=== PATIENT | male | born 1930 | race Caucasian/White ===

== ENCOUNTER 2019-03-05 06:54 | Observation (INO) ==
--- NOTE | 2019-02-22 17:09 | PAT Medication Instructions ---
Medication Instructions Date of Service February 22, 2019 Home Medications atenolol 12.5 mg PO BID vit C,I-Gs-bpphy-lutein-zeaxan [PreserVision AREDS-2] 1 tab PO BID STOP taking 2 weeks before surgery If surgery is within 2 weeks, stop taking as soon as possible. vit C,P-Pv-sosjv-lutein-zeaxan [PreserVision AREDS-2] 1 tab PO BID Take morning of surgery With a small sip of water, OTHERWISE NOTHING TO EAT OR DRINK AFTER MIDNIGHT: atenolol 12.5 mg PO BID Take evening before surgery atenolol 12.5 mg PO BID Other Notes If you have any questions please call us at [phone] or [phone] or [phone] or [phone]
--- NOTE | 2019-02-23 10:27 | Anesthesiology Consultation ---
Date of Service February 23, 2019 Assessment & Plan (1) Encounter for pre-operative examination: Chart Review Chart Review: Acceptable Risk for Surgery and Patient seen in Pre Admission Testing Teaching & Discussion Instructed NPO after midnight before surgery, except medications with 15 cc of water. Medication instructions provided according to the PAT guidelines. History Surgery Operation Date: 03/05/19 07:00 Proposed Procedures p Right Open Inguinal Hernia Repair - Micah Diop MD, FACS Height/Weight Height: 5 ft 8 in Weight: 69 kg Allergies Allergy/AdvReac Type Severity Reaction Status Date / Time No Known Allergies Allergy Unknown Verified 02/21/19 13:30 Medications Home Medications Medication Instructions Recorded Confirmed Last Taken atenolol 12.5 mg PO BID 02/21/19 02/21/19 Unknown vit C,Q-Gr-citzx-lutein-zeaxan 1 tab PO BID 02/21/19 02/21/19 Unknown [PreserVision AREDS-2] Past Medical History Medical History Hypertension Self-catheterizes urinary bladder Exercise / Class Metabolic Activity II 4-5 Yardwork/Stairs/Walk up hill (denies CP or SOB with yardwork and stairs, is active around his home) Past Surgical History Surgical History History of appendectomy History of colonoscopy History of cystoscopy HISTORY OF CYSTO WITH IMPLANT TO HELP WITH URINATION. PT STATES THAT THE IMPLANT DID NOT WORK AND THAT HE DOES SELF CATH. History of tonsillectomy S/P TURP Past Anesthesia History No Hx of Anesthesia Complications and No Family Hx of Anesthesia Complications History of PONV No Hx of PONV and No Hx of Motion Sickness Social History Smoking Status: Never smoker Smoking cigarettes per day: 0 Do You Dip or Chew Tobacco: No Hx Alcohol Use: No Alcohol Intake Frequency Comment: 0 Hx Substance Use: No substance use type: does not use Review of Systems Pt denies any recent chest pain, shortness of breath, palpitations, fever or URI. +cough, mild, productive with clear phlegm. Physical Exam Vital Signs BP: 152/80 (pt was seen by PCP last week, reports he is to start additional BP med after surgery) P: 53bpm SPO2: 97% RA T: 98.1 F R: 12 ENMT Mouth: no dental restorations, dentition not poor and no chipped teeth Thyromental Distance: > or= 3.5 Finger Breadths (3.5) Mallampati Class: I Tonsils surgically absent. Neck normal visual inspection and + limited neck extension (mildly, without pain) Respiratory normal respiratory effort Auscultation: lungs clear to auscultation bilaterally and + bronchovesicular shruti ath sounds (B/L) Cardiovascular Rate/Rhythm: regular rate and regular rhythm Heart Sounds: no murmur Vessels: no carotid bruit Extremities: no edema Testing Laboratory Results 02/23/19 10:42 02/23/19 10:42 Electrocardiogram Date: 02/23/19 Findings: + SB @ (49 with 1st degree AVB) Left axis deviation. Low voltage QRS. 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
[2019-02-23 11:57] LABS: Basophils # (auto) 0.02 K/uL (0-0.2); Basophils % (auto) 0.3 %; Eosinophils # (auto) 0.07 K/uL (0-0.5); Eosinophils % (auto) 1.1 %; Hematocrit (blood only) 40.5 % (42-52); Immature Granulocytes # (auto) 0.02 K/uL (0.00-0.02); Immature Granulocytes % (auto) 0.3 %; Lymphocytes # (auto) 1.05 K/uL (1.2-3.4); Mean Corpuscular Hgb Conc 34.6 g/dL (32-36); Mean Corpuscular Volume 92.9 fL (80-100); Monocytes # (auto) 0.54 K/uL (0.11-0.59); Monocytes % (auto) 8.2 %; Neutrophils # (auto) 4.85 K/uL (1.4-6.5); Neutrophils % (auto) 74.1 %; Platelet Count 206 K/uL (130-400); RDW Standard Deviation 47.7 fL (36.4-46.3); Red Blood Count 4.36 M/uL (4.7-6.1); White Blood Count 6.55 K/uL (4.8-10.8)
[2019-02-23 12:09] LABS: BUN Creatinine Ratio 18.7 (10-20); Calcium 8.9 mg/dl (8.5-10.1); Creatinine Clr Calc Pharmacy 40.8 ml/min; Est GFR (African American) 61.6; Est GFR (Non-African American) 53.1; Potassium 4.8 mmol/L (3.5-5.1)
[~2019-03-05 06:54] MED LIST: CEFAZOLIN 2000MG 2,000 MG/15 ML SYR IV SCH; LR 15ML/HR IV SCH
[2019-03-05] MEDS ORDERED: fentaNYL citrate 100 MCG/2 ML VIAL ONE (07:25)
[2019-03-05] MEDS ORDERED: PROPOFOL IV EMULSION 10 MG/ML 20 ML VIAL IV ONE (07:25)
[2019-03-05] MEDS ORDERED: LIDOCAINE HCL 2% 2 ML VIAL/AMP(20MG/ML) INFIL ONE (07:25)
[2019-03-05] MEDS ORDERED: MIDAZOLAM HCL 1 MG/ML 2ML VIAL ONE (07:25)
[2019-03-05] MEDS ORDERED: BUPIVACAINE 0.5 % 5 MG/1 ML MPF 30ML VIAL ONE (07:52)
[2019-03-05] MEDS ORDERED: HYDROmorphone INJ 1 MG/ML SYRINGE IV PRN (07:53)
[2019-03-05] MEDS ORDERED: ONDANSETRON INJ 2 MG/ML 2 ML VIAL IV PRN ×2 (07:53→11:10)
[2019-03-05] MEDS ORDERED: ATROPINE SULFATE 0.1 MG/ML 10ML SYR IV PRN (07:53)
[2019-03-05] MEDS ORDERED: ePHEDrine sulfate 50 MG/ML AMP IV PRN (07:53)
[2019-03-05] MEDS ORDERED: fentaNYL citrate 100 MCG/2 ML VIAL IV PRN (07:53)
--- NOTE | 2019-03-05 07:57 | History & Physical Bridge Note ---
Date of Service March 05, 2019 History & Physical Bridge Note I have examined the patient, reviewed the History & Physical and in the interval since the performance of the History & Physical I have noted the following changes of clinical significance: no changes noted
[2019-03-05] MEDS ORDERED: ONDANSETRON INJ 2 MG/ML 2 ML VIAL ONE (09:15)
[2019-03-05] MEDS ORDERED: ePHEDrine sulfate 50 MG/ML SYR ONE (09:27)
[2019-03-05] MEDS ORDERED: ACETAMINOPHEN 1,000 MG/100 ML VIAL IV ONE (09:27)
--- NOTE | 2019-03-05 09:27 | Operative Report ---
Post Operative Report Pre & Post Diagnosis Operation Date: 03/05/19 08:50 Pre-Op Diagnosis: Right Inguinal Hernia Post-Op Diagnosis: Right Inguinal Hernia- direct defect Procedure Operation Date: 03/05/19 08:50 Actual Procedures p Right Open Inguinal Hernia Repair(Right) - Micah Diop MD, FACS Surgeon Micah Diop MD, FACS Tile Layer Helper Rashad Gore Estimated Blood Loss 5 Findings Consistent with Post-Op Diagnosis Specimens Rt Inguinal tissue Description of Procedure see dictation I attest to the content of the Intraoperative Record and any orders documented therein. Any exceptions are noted below.
[2019-03-05] MEDS ORDERED: CEFAZOLIN 1000MG 1,000 MG/7.5 ML SYR IV STA (09:28)
[2019-03-05] MEDS ORDERED: ACETAMINOPHEN 1000 MG/100 ML IV IV ONE (09:49)
--- NOTE | 2019-03-05 10:17 | Anesthesiology Progress Note ---
Date of Service March 05, 2019 Anesthesia Post Procedure Vital Signs Vital Signs: Temp Pulse Pulse Resp BP BP Pulse Ox 03/05/19 10:05 49 L 20 119/74 100 03/05/19 09:55 46 L 15 151/74 H 100 03/05/19 09:45 50 L 16 137/78 100 03/05/19 09:37 36.0 C L 50 L 14 151/77 H 100 03/05/19 07:23 36.5 C 48 L 18 156/77 H 94 Transfer of Care Handoff Completed per policy Notes Mental Status: alert / awake / arousable and participated in evaluation Patient Amnestic to Procedure: Yes Nausea / Vomiting: adequately controlled Pain: adequately controlled Airway Patency, RR, SpO2: stable & adequate BP & HR: stable & adequate Hydration State: stable & adequate Anesthetic Complications: no major complications apparent and Pt Satisfied with anesthetic care
--- NOTE | 2019-03-05 10:19 | Operative Report ---
DATE OF OPERATION: 03/05/2019 NAME OF OPERATION: Open right inguinal hernia repair. PREOPERATIVE DIAGNOSIS: Right inguinal hernia. POSTOPERATIVE DIAGNOSIS: Right inguinal hernia with direct defect. STAFF SURGEON: Micah Diop MD PAPER COLORER: Riki Gore PA-C. ANESTHESIA: General. PROCEDURE: The patient was brought in the operating room and placed on the operating table in supine position. His abdomen was prepped and draped in usual fashion. My diploma dental assistant helped with prepping, draping, repair of the hernia, and closure of the wound. Initially skin and subcutaneous tissue in the right lower quadrant were anesthetized using 0.5% plain Marcaine. Incision made parallel to the inguinal ligament, carrying dissection down identifying the external oblique fibers, incising them along their length to the external ring. On mobilization of the cord structures, It was apparent the patient had a direct hernia with a small area of scar tissue, which may have been lipoma scarred from chronic inflammation. The direct hernia sac was reduced. A large mesh plug placed into the floor of the canal. I made a relaxing incision in the upper fascia over the internal oblique muscle and then the tissue secured with the plug using 0 silk suture. A large mesh patch was then placed into the floor of the canal around the cord structures over the plug, secured using 2-0 Ethibond suture. We did identify the ilioinguinal and iliohypogastric nerves. The site was irrigated with antibiotic solution. External oblique fibers closed over the mesh around the cord structure using structures using 2-0 Ethibond suture. Subcutaneous tissue reapproximated using 2-0 plain suture, then the skin reapproximated using 4-0 nylon suture and Steri-Strips. The patient was transferred to recovery room in stable condition. I attest to the content of the Intraoperative Record and any orders documented therein. Any exception s are noted below.
[2019-03-05] MEDS ORDERED: ACETAMINOPHEN 325 MG TAB PO PRN (11:10)
[2019-03-05] MEDS ORDERED: SODIUM CHLORIDE 0.9% 1000ML 1,000 ML IV SCH (11:10)
[2019-03-05] MEDS ORDERED: MoRPHine SULFATE 2 MG/ML CARP IV PRN (11:10)
[2019-03-05] MEDS ORDERED: PROMETHAZINE HCL 12.5 MG in SODIUM CHLORIDE 0.9% 50 ML IV PRN (11:10)
[2019-03-05] MEDS ORDERED: HYDROCODONE/ACETAMOPHEN 5/325MG TAB PO PRN ×2 (11:10)
[2019-03-05] MEDS: CEFAZOLIN 1000MG 1,000 MG/7.5 ML SYR IV SCH (18:23)
[2019-03-05] MEDS ORDERED: MAGNESIUM HYDROXIDE SUSP 30 ML UDC ONE (19:55)
[2019-03-05] MEDS: MAGNESIUM HYDROXIDE SUSP 30 ML UDC PO SCH (19:56)
[2019-03-05] MEDS: DOCUSATE SODIUM/SENNA 50/8.6MG TAB PO SCH (19:56)
[2019-03-05] MEDS: ATENOLOL 25 MG TABLET PO SCH (21:37)
[2019-03-06] MEDS: CEFAZOLIN 1000MG 1,000 MG/7.5 ML SYR IV SCH ×2 (02:18→11:01)
--- NOTE | 2019-03-06 08:10 | Discharge Summary ---
PRINCIPAL DIAGNOSIS: Right inguinal hernia. PROCEDURES: The patient underwent open right inguinal hernia repair. HISTORY OF PRESENT ILLNESS: The patient is an 88-year-old male with known right inguinal hernia for definitive surgery. HOSPITAL COURSE: He was brought into the hospital on 03/05/2019 where he underwent open right inguinal hernia repair which he tolerated very well. He has done well postoperatively and is felt stable for discharge home today. The patient does self-catheterization.
[2019-03-06] MEDS: DOCUSATE SODIUM/SENNA 50/8.6MG TAB PO SCH (08:50)
[2019-03-06] MEDS: ATENOLOL 25 MG TABLET PO SCH (08:51)
[2019-03-06] MEDS: MAGNESIUM HYDROXIDE SUSP 30 ML UDC PO SCH (08:53)
--- NOTE | 2019-03-06 10:40 | Anesthesiology Progress Note ---
Date of Service March 06, 2019 Anesthesia Post Procedure Vital Signs Vital Signs: Temp Pulse Pulse Pulse Resp BP BP 03/06/19 08:50 62 03/06/19 08:28 36.5 C 57 L 15 116/70 129/64 03/06/19 07:25 36.5 C 56 L 15 116/70 03/06/19 03:45 36.8 C 64 19 129/64 03/05/19 23:28 36.5 C 56 L 16 109/61 03/05/19 21:36 36.7 C 53 L 16 111/68 03/05/19 19:35 36.4 C L 57 L 16 141/70 H 03/05/19 15:02 36.3 C L 50 L 16 130/64 03/05/19 14:17 50 L 18 121/51 L 03/05/19 12:45 52 L 18 153/71 H 03/05/19 12:00 36.4 C L 50 L 16 166/79 H 03/05/19 11:15 47 L 18 153/44 H 03/05/19 10:45 36.5 C 48 L 16 155/74 H Pulse Ox 03/06/19 08:50 03/06/19 08:28 96 03/06/19 07:25 96 03/06/19 03:45 93 03/05/19 23:28 97 03/05/19 21:36 94 03/05/19 19:35 95 03/05/19 15:02 98 03/05/19 14:17 98 03/05/19 12:45 99 03/05/19 12:00 99 03/05/19 11:15 99 03/05/19 10:45 98 Notes Mental Status: alert / awake / arousable and participated in evaluation Nausea / Vomiting: adequately controlled Pain: adequately controlled Airway Patency, RR, SpO2: stable & adequate BP & HR: stable & adequate Hydration State: stable & adequate
== END 2019-03-06 12:00 | disposition home or self-care (01) ==
LOC: ASU 06:54 → 3W 06:54